=== PATIENT | female | born 1960 | race Caucasian/White ===

== ENCOUNTER 2016-06-12 21:42 | Emergency (ER) | payer OTHER ==
--- NOTE | 2016-06-12 22:10 | ED CARDIAC/CP/PALPITATIONS ---
History of Present Illness General Chief Complaint: Chest Pain Stated Complaint: RIGHT SIDED CHEST PAIN Source: patient, family, old records Exam Limitations: no limitations Vital Signs & Intake/Output Vital Signs & Intake/Output Vital Signs Date Time Temp Pulse Resp B/P Pulse O2 O2 Flow FiO2 Ox Delivery Rate 06/12 2336 97.9 77 18 147/67 99 Room Air 06/12 2223 18 06/12 2158 97.2 80 122/80 100 ED Intake and Output 06/13 0000 06/12 1200 Intake Total 30 Output Total Balance 30 Intake, Oral 30 Allergies Coded Allergies: No Known Allergies (06/12/16) Triage Note: PER PT CP SINCE ABOUT 7 PM COMES AND GOES HAS HAD X COUPLE OF MONTHS. PT WITH CHRONIC BACK AND ARM PAIN BUT THIS IS RT SIDED CHEST Triage Nurses Notes Reviewed? yes Onset: Abrupt Duration: hour(s): (3), constant Timing: recent history Quality/Severity: moderate, aching, sharp Location: abdomen (ruq) Radiation: r chest wall Activities at Onset: rest Prior Chest Pain/Card Workup: similar sx in past several months Aspirin Today: no aspirin today HPI: 55-year-old female who presents emergency room for evaluation complaining of sudden onset right upper quadrant abdominal pain radiating to the right chest since 7:00 this evening it came on while at rest. Patient states symptoms are waxing and waning in intensity however she is not taken anything for her symptoms. She reports history of similar episodes in the past several months, patient reports positive nausea this evening hours declining a nausea when offered. No vomiting no diarrhea no other abdominal pain fever or chills. The patient denies pain with inspiration shortness of breath palpitations dizziness lightheadedness lability no leg pain or swelling. pain is worse with palpation. (DEONDRE NIEVES) Past History Travel History Traveled to [place] past 21 day No Medical History Any Pertinent Medical History? see below for history Neurological: NONE EENT: NONE Cardiovascular: hypertension Respiratory: NONE Gastrointestinal: NONE Hepatic: NONE Renal: NONE Musculoskeletal: CHRONIC PAIN Psychiatric: NONE Endocrine: NONE Surgical History Surgical History: none Psychosocial History Who do you live with Spouse Services at Home NONE What is your primary language Macedonian Tobacco Use: Never used Family History Hx Contributory? No (DEONDRE NIEVES) Review of Systems Review of Systems Constitutional: Reports: see HPI. All Other Systems: Reviewed and Negative Comments Review of systems: See HPI, All other systems negative. Constitutional, no chills no fever, no malaise HEENT: no sore throat no congestion, no ear pain Cardiovascular: chest pain , no palpitation , no orthopnea no ankle swelling Skin, no jaundice no rashes, no change in skin Respiratory: No dyspnea no cough no sputum no hemoptysis GI: nausea no vomiting, no diarrhea, no bloating/constipation : No dysuria Muscle skeletal: No joint pain, no back pain, no neck pain, Neurologic: no headache Psych: No stress Heme/endocrine: No bruising no bleeding Immunology: No lymphadenopathy, (DEONDRE NIEVSE) Physical Exam Physical Exam General Appearance: well developed/nourished, no apparent distress Cardiovascular: regular rate/rhythm, normal peripheral pulses Gastrointestinal: tenderness (ruq) Comments: Well-developed well-nourished person in no acute distress HEENT: Normal EENT exam; PERRL, EOMI, HEAD is atraumatic. moist mucous membranes. Neck: Supple, normal range of motion Back: Nontender, no CVA tenderness. Full range of motion Cardiovascular: Regular rate and rhythms no murmurs rubs or gallops, normal JVP Respiratory: Chest nontender.There were no bony deformities, no asymmetry. No respiratory distress. Patient speaking in full complete sentences. Breath sounds clear to auscultation bilaterally: NO W/R/R Abdomen: Soft, RUQ TTP nondistended, no appreciable organomegaly. Normal bowel sounds. No rebound/guarding, No ascites. Extremity: No edema, full range of motion of extremities Neuro: Alert oriented x3, motor sensory normal, There were no obvious focal neurologic abnormalities. Skin: No appreciable rash on exposed skin, skin is warm and dry. No jaundice, no diaphoresis Psych: Mood and affect is normal, memory and judgment is normal. Core Measures ACS in differential dx? Yes Severe Sepsis Present: No Septic Shock Present: No (DEONDRE NIEVES) Progress Differential Diagnosis: AMI, aortic dissection, atrial fibrillation, cholecystitis, CHF/pulm edema, costochondritis, musculoskeletal pain, myocarditis, pancreatitis, pericarditis, pneumonia, pneumothorax, PSVT, pulmonary embolism, PUD/GERD, PVCs/PACs, unstable angina Plan of Care: Orders Procedure Date/time Status Telemetry/[employer] 06/12 2238 Active TROPONIN LEVEL 06/12 2204 Complete LIPASE 06/12 2204 Complete COMPREHENSIVE METABOLIC PANEL 06/12 2204 Complete CBC WITHOUT DIFFERENTIAL 06/12 2204 Complete AMYLASE 06/12 2204 Complete EKG 06/12 2142 Active Laboratory Tests 06/12/162219: Anion Gap 13, Estimated GFR > 60, BUN/Creatinine Ratio 13.3, Glucose 101 H, Calcium 9.9, Total Bilirubin 0.6, AST 100 H, ALT 53 H, Alkaline Phosphatase 91 , Troponin I < 0.01, Total Protein 8.1, Albumin 4.4, Globulin 3.7, Albumin/ Globulin Ratio 1.2, Amylase 30, Lipase 92, CBC w Diff MAN DIFF ORDERED, RBC 4.28 , MCV 86.9, MCH 28.7, RDW 14.3, MPV 7.9, Gran % 81.8 H, Lymphocytes % 12.9 L, Monocytes % 4.1, Eosinophils % 1.1, Basophils % 0.1, Absolute Granulocytes 13.1 H, Segmented Neutrophils 84 H, Absolute Lymphocytes 2.1, Lymphocytes 13 L, Monocytes 3, Absolute Monocytes 0.7 H, Absolute Eosinophils 0.2, Absolute Basophils 0, Platelet Estimate VERIFIED BY SMEAR, Normocytic RBCs VERIFIED, Normochromic RBCs VERIFIED, PUBS MCHC 33.0, Fld Total RBCs Counted 100 Patient medicated with Toradol IV Pepcid 20 IV GI cocktail Case discussed with and signed out to Dr. Garza ending labs CAT scan and x- ray (DEONDRE NIEVES) Diagnostic Imaging: Viewed by Me: Radiology Read, CT Scan. Discussed w/RAD: Radiology Read, CT Scan. Initial ED EKG: normal intervals, normal p-waves, normal QRS complex, normal sinus rhythm (70), nonspecific ST T wave chg Prior EKG: unchanged (2007) Rhythm Strip: normal sinus rhythm Hand-Off Endorsed To: YUN GARZA MD Endorsed Time: 2299 Pending: CT, labs, Xray (DEONDRE NIEVES) Radiology Impression: PATIENT: JORDI ENRIQUE PRESENT AGE: 55 PATIENT ACCOUNT NO: [id number] : 62 LOCATION: [facility] ORDERING PHYSICIAN: DEONDRE CLARK SERVICE DATE: 06/12/16 EXAM TYPE: CAT - CT ABD & PELVIS W IV CONTRAST EXAMINATION: CT ABDOMEN AND PELVIS WITH CONTRAST CLINICAL INFORMATION: Right-sided abdominal pain. Epigastric pain. Chest pain. COMPARISON: None TECHNIQUE: Multidetector volumetric imaging was performed of the abdomen and pelvis before and after the IV administration of 94 mL of Optiray 320 intravenous contrast. Sagittal and coronal reformatted images were obtained on the technologist's workstation. DLP: 889.91 mGy-cm FINDINGS: LUNG BASES: The visualized lung bases are unremarkable. LIVER, GALLBLADDER, AND BILIARY TREE: The liver is normal in size, shape, and attenuation. No focal hepatic lesion or biliary ductal dilatation is present. The gallbladder is unremarkable with no evidence of radiopaque gallstones, gallbladder wall thickening, or obvious pericholecystic inflammatory changes. PANCREAS: Unremarkable. SPLEEN: Unremarkable. ADRENAL GLANDS: Unremarkable. KIDNEYS AND URETERS: The kidneys are normal in size, shape, and attenuation. No hydronephrosis, hydroureter, or calculi seen. No perinephric stranding. BLADDER: Unremarkable. GASTROINTESTINAL TRACT: The small and large bowel are unremarkable. The appendix is unremarkable. ABDOMINAL WALL: No significant hernia is appreciated. LYMPH NODES: Normal. VASCULAR: Unremarkable. PELVIC VISCERA: Uterus is anteverted. No adnexal abnormality. OSSEOUS STRUCTURES: Unremarkable. IMPRESSION: No significant abnormality. DICTATED BY: ADELAIDA GILLETTE MD DATE/TIME DICTATED:06/12/162339 INSPECTING SUPERVISOR:PATRICK DATE/TIME TRANSCRIBED:06/12/162339 CONFIDENTIAL, DO NOT COPY WITHOUT APPROPRIATE AUTHORIZATION. <Electronically signed in Other Vendor System> SIGNED BY: ADELAIDA GILLETTE MD 06/12/162347 Comments: Patient is feeling much better. No tenderness in the right upper quadrant. (KAYLA ORANTES,YUN Lassiter) Departure Departure Condition: Stable Clinical Impression Primary Impression: Abdominal pain Secondary Impressions: Leukocytosis Departure Forms: Customer Survey General Discharge Information (DEONDRE NIEVES) Departure Disposition: HOME OR SELF CARE Referrals: KHANH ORANTES,JI Lassiter (PCP/Family) PEGGY ORANTES,CHRIS Pelaez. Additional Instructions: FOLLOW UP WITH DR. WOODS RETURN IF SYMPTOMS WORSEN OR FOR ANY CONCERNS Prescriptions: Current Visit Scripts Oxycodone HCl/Acetaminophen (Percocet 5-325 MG Tablet) 1-2 TAB PO Q6P PRN PAIN #20 TAB PA/FURNACE CARETAKER Co-Sign Statement Statement: ED Attending supervision documentation- [X] I saw and evaluated the patient. I have also reviewed all the pertinent lab results and diagnostic results. I agree with the findings and the plan of care as documented in the PA's/FURNACE CARETAKER's documentation. [X] I have reviewed the ED Record and agree with the PA's/FURNACE CARETAKER's documentation. [] Additions or exceptions (if any) to the PAs/FURNACE CARETAKER's note and plan are summarized below: [] (KAYLA ORANTES,YUN Lassiter) Critical Care Note Critical Care Note Critical Care Time: non-applicable (DEONDRE NIEVES)
[2016-06-12 22:39] LABS: ABSOLUTE BASOPHIL COUNT 0 /CUMM (0.0-0.2); ABSOLUTE EOSINOPHIL COUNT 0.2 /CUMM (0.0-0.7); ABSOLUTE GRANULOCYTE CT 13.1 /CUMM (1.4-6.5); ABSOLUTE LYMPH COUNT 2.1 /CUMM (1.2-3.4); ABSOLUTE MONOCYTE COUNT 0.7 /CUMM (0.10-0.60); BASOPHIL % 0.1 % (0.0-2.0); EOSINOPHIL % 1.1 % (0-5); GRANULOCYTE % 81.8 % (42.2-75.2); HEMATOCRIT 37.2 % (37-47); MEAN CORPUSCULAR HGB 28.7 PG (27.0-31.0); MEAN CORPUSCULAR VOLUME 86.9 FL (81.0-99.0); MEAN PLATELET VOLUME 7.9 FL (7.4-10.4); PLATELET COUNT 423 /CUMM (130-400); RBC DISTRIBUTION WIDTH 14.3 % (11.5-14.5); RED BLOOD CELL CT 4.28 /CUMM (4.20-5.40); WHITE BLOOD CELL COUNT 16.1 /CUMM (4.8-10.8)
[2016-06-12 23:36] VITALS: BP 147/67
--- NOTE | 2016-06-12 23:43 | RADIOLOGY REPORT ---
EXAMINATION: XR PORTABLE CHEST CLINICAL INFORMATION: Cardiomegaly. Right-sided chest pain. COMPARISON: None TECHNIQUE: Portable AP view of the chest was obtained. 10:57 PM FINDINGS: Heart size is normal. Cardiac and mediastinal contours are normal. No pulmonary vascular congestion. The lungs are clear. No pneumothorax. Orthopedic plate and screw at lower cervical spine IMPRESSION: Normal chest.
--- NOTE | 2016-06-12 23:48 | CT SCAN REPORT ---
EXAMINATION: CT ABDOMEN AND PELVIS WITH CONTRAST CLINICAL INFORMATION: Right-sided abdominal pain. Epigastric pain. Chest pain. COMPARISON: None TECHNIQUE: Multidetector volumetric imaging was performed of the abdomen and pelvis before and after the IV administration of 94 mL of Optiray 320 intravenous contrast. Sagittal and coronal reformatted images were obtained on the technologist's workstation. DLP: 889.91 mGy-cm FINDINGS: LUNG BASES: The visualized lung bases are unremarkable. LIVER, GALLBLADDER, AND BILIARY TREE: The liver is normal in size, shape, and attenuation. No focal hepatic lesion or biliary ductal dilatation is present. The gallbladder is unremarkable with no evidence of radiopaque gallstones, gallbladder wall thickening, or obvious pericholecystic inflammatory changes. PANCREAS: Unremarkable. SPLEEN: Unremarkable. ADRENAL GLANDS: Unremarkable. KIDNEYS AND URETERS: The kidneys are normal in size, shape, and attenuation. No hydronephrosis, hydroureter, or calculi seen. No perinephric stranding. BLADDER: Unremarkable. GASTROINTESTINAL TRACT: The small and large bowel are unremarkable. The appendix is unremarkable. ABDOMINAL WALL: No significant hernia is appreciated. LYMPH NODES: Normal. VASCULAR: Unremarkable. PELVIC VISCERA: Uterus is anteverted. No adnexal abnormality. OSSEOUS STRUCTURES: Unremarkable. IMPRESSION: No significant abnormality.
[2016-06-13] MEDS ORDERED: PERCOCET 5-3251 EACH PO (00:03)
== END 2016-06-13 00:21 ==
LOC: ERH 21:42
PROVIDERS: Emergency Medicine
DX: D72.829 Elevated white blood cell count, unspecified (principal); R10.11 Right upper quadrant pain
CPT/HCPCS: 74177; 93005; 93010; 96374; 96375; J1885

== ENCOUNTER → 2016-07-21 | Day surgery (SDC) | payer OTHER ==
[~2016-07-21] VITALS: Ht 160 cm; Wt 106.6 kg
[~2016-07-21] MED LIST: PERCOCET 5-3251 EACH PO
--- NOTE | 2016-07-23 13:04 | Operative Report ---
Operative/Inv Procedure Report Surgery Date: 07/21/16 Name of Procedure: Laparoscopic cholecystectomy Pre-Operative Diagnosis: Symptomatic gallstones Post-Operative Diagnosis: Same Estimated Blood Loss: scant Surgeon/Roper Operator: PEGGY ORANTES,CHRIS CLARK Anesthesia: general endotracheal tube Operative/Procedure Note Note: Patient was positioned supine. After successful induction of general anesthesia, the patient's abdomen was clipped, prepped and draped in the usual sterile fashion. Local anesthetic was injected at the top of the umbilicus and then a curved horizontal incision little over a centimeter was made there with a 15 blade and then deepened to the midline fascia which was incised vertically a little over a centimeter. Both sides were secured with 0 Vicryl stay sutures and then the thin peritoneal layer was entered, 10 mm Ledesma trocar inserted obliquely to the right, and the gas was turned on to 15 mm. After insufflation and repositioning to reverse Trendelenburg, 3 more dissecting 5 mm trochars were placed in the right subcostal area, first lateral, then mid-subcostal, then subxiphoid. The gallbladder fundus was grasped from the lateral port and retracted up over the edge of the liver and then we dissected out the area of the triangle of Calot while retracting the infundibulum caudally / laterally. First the cystic duct was identified, isolated at the neck, clipped 3 times, divided after the second clip and then in similar fashion the cystic artery was identified medially, dissected and divided. Then the gallbladder was from the liver bed using cautery then lowered into an Endobag and removed through the umbilical incision. The instruments and then the trochars were removed letting the gas escape. The fascial incision was closed with a figure 8 Vicryl then all 4 skin incisions were closed with interrupted subcuticular 4-0 Monocryl, followed by Mastisol Steri-Strips and Bandaids. Estimated blood loss was minimal, lap and sponge counts were correct, wound expectancy was clean- contaminated, IV fluids crystalloid, complications none, patient tolerated the procedure well and was returned to the recovery room in satisfactory condition.
== END ==
LOC: STS 01:48
DX: K80.10 Calculus of gallbladder with chronic cholecystitis without obstruction (principal); K82.4 Cholesterolosis of gallbladder; I10 Essential (primary) hypertension; E66.9 Obesity, unspecified
CPT/HCPCS: 81025; 88304; J0131; J0690; J2250; J2405

== ENCOUNTER 2016-08-14 09:54 | Emergency (ER) | payer OTHER ==
[~2016-08-14] VITALS: Ht 160 cm; Wt 106.6 kg
[2016-08-14] MEDS ORDERED: PROPRANOLOL HCL80 M3 PO (10:21)
--- NOTE | 2016-08-14 11:04 | ED NECK/BACK PAIN COMPLAINT ---
History of Present Illness General Chief Complaint: Neck/Upper Back Pain/Injury Stated Complaint: NECK PAIN RADIAITING INTO BOTH ARMS X 3DAYS Source: patient Exam Limitations: no limitations Vital Signs & Intake/Output Vital Signs & Intake/Output Vital Signs Date Time Temp Pulse Resp B/P B/P Pulse O2 O2 Flow FiO2 Mean Ox Delivery Rate 08/14 1124 Room Air 08/14 1000 97.0 76 16 127/86 97 Room Air Allergies Coded Allergies: No Known Allergies (06/12/16) Reconcile Medications Propranolol HCl 80 MG TABLET 1 TAB PO DAILY BP (Reported) Triage Note: PT STATES SHE IS HAVING NECK PAIN SINCE THE WEEKEND. PT WITH HX OF NECK SURGERY. Triage Nurses Notes Reviewed? yes HPI: Patient presents for evaluation of "a lot of neck pain". Patient's pain began Sunday evening while she was at a wedding. She denies any unusual exertion other than dancing. She states the pain is in the upper neck but she is also experiencing a bilateral shoulder and arm pain as well. She states the pain worsens with movement. There is been no associated fever or cold symptoms associated trauma. Patient had a neck fusion with hardware in 2007 and she has had intermittent numbness of the upper extremities since. Past History Travel History Traveled to [place] past 21 day No Medical History Any Pertinent Medical History? see below for history Neurological: NONE EENT: NONE Cardiovascular: hypertension Respiratory: NONE Gastrointestinal: NONE Hepatic: NONE Renal: NONE Musculoskeletal: CHRONIC PAIN Psychiatric: NONE Endocrine: NONE Surgical History Surgical History: none Psychosocial History Who do you live with Spouse Services at Home NONE What is your primary language Bulgarian Tobacco Use: Never used ETOH Use: occasional use Illicit Drug Use: denies illicit drug use Family History Hx Contributory? No Review of Systems Review of Systems Constitutional: Reports: no symptoms. Eyes: Reports: no symptoms. Ears, Nose, Throat, Mouth: Reports: no symptoms. Respiratory: Reports: no symptoms. Cardiovascular: Reports: no symptoms. Gastrointestinal/Abdominal: Reports: no symptoms. Musculoskeletal: Reports: see HPI. Skin: Reports: no symptoms. Neurological/Psychological: Reports: no symptoms. All Other Systems: Reviewed and Negative Physical Exam Physical Exam Neck: sEE BELOW Comments: Gen.: Well-nourished, well-developed, no acute respiratory distress. Head: Normocephalic, atraumatic. Eyes: Normal inspection bilaterally Ears: Normal inspection bilaterally Nose: Normal inspection Throat/mouth : Moist mucosa Neck: Supple, full range of motion, no goiter, no carotid bruits mild carotid pulses, nontender Heart: Regular rate and rhythm, no murmurs rubs or gallops Lungs: Clear to auscultation bilaterally with normal air entry Chest: Nontender Back: Normal range of motion Extremities: Normal range of motion grossly, equal radial pulses, no cyanosis clubbing or edema, upper extremities: Normal deep tendon reflexes bilaterally, sensation intact to light touch, clinical product manager strength normal, no pronator drift Neurologic: Cranial nerves grossly intact, speech is clear Skin: warm and dry Psychiatric: Calm, cooperative, no apparent delusions or hallucinations Progress Differential Diagnosis: herniated disc, myofascial strain Plan of Care: Current Medications Sig/Luzma Start time Last Medication Dose Stop Time Status Admin Methylprednisolone 125 MG ONCE ONE 08/14 1444 UNVr (Solu Medrol) 08/14 1445 Comments: MRI considered but patient's surgery occurred in 2007. It is unclear if the hardware is compatible with MRI. 08/14/2016 2:18:01 PM patient's case discussed with neurosurgical EDUARDO gonzalez covering for Dr. Ballard. CAT scan reviewed. Patient will be treated with steroids pain medication and office follow-up. Imaging with MRI discussed but felt not necessary at this point. Departure Departure Disposition: HOME OR SELF CARE Condition: Stable Clinical Impression Primary Impression: Neck pain Secondary Impressions: Cervical radiculopathy, Degenerative disc disease, cervical Referrals: KHANH ORANTES,JI Lassiter (PCP/Family) Departure Forms: Customer Survey General Discharge Information Prescriptions: Current Visit Scripts Methylprednisolone. (Medrol) 1 DP PO AD #1 DP 6 on day 1 then reduce by one tablet daily until gone Hydrocodone/Acetaminophen (Easley 5-325 Tablet) 1-2 TAB PO Q6P PRN PAIN #20 TAB
--- NOTE | 2016-08-14 13:27 | CT SCAN REPORT ---
EXAMINATION: CT CERVICAL SPINE WITHOUT CONTRAST CLINICAL INFORMATION: Neck pain and upper extremity numbness. Disc disease. COMPARISON: No recent comparison exams of the cervical spine within the electronic picture archive. TECHNIQUE: Noncontrast multidetector CT imaging of the cervical spine was performed using 0.625 mm collimation. In addition to the standard set of axial images, coronal and sagittal reformatted images were generated and reviewed. DLP: 372 mGy-cm FINDINGS: The visualized intracranial structures are normal. Within the posterior fossa, the fourth ventricle is midline in position. The cerebellar hemispheres and brainstem are unremarkable. There is lack of lordotic curvature of the postoperative cervical spine. No acute findings are detected within the cervical or upper thoracic spine. No evidence of epidural hematoma or paraspinal fluid collection. Occipital condyles, atlas, axis and atlantoaxial articulation are intact. At C2-C3, there is mild facet arthropathy. The C2-C3 disc space is preserved. There is minimal central disc protrusion at C2-C3. No significant narrowing of the central canal or neural foramina at this level. At C3-C4, there is moderate bilateral facet arthropathy, mild uncovertebral joint hypertrophy and small posterior disc-osteophyte complex without significant narrowing of the central canal or foramina. At C4-C5, there is degenerative disc space narrowing and traction osteophyte formation with posterior disc-osteophyte complex indenting the ventral surface of the thecal sac and narrowing the central spinal canal to approximately 1 cm AP diameter. The neural foramina are widely patent. Surgical changes from remote discectomy and anterior fusion at C5-C6 and C6-C7. Anterior fusion plate and screws are in satisfactory position. There is no hardware failure, vertebral osteolysis, prevertebral soft tissue swelling, fracture or malalignment. There is solid incorporation of bone graft into the endplates of C5 and C6. At C6-C7, there is no convincing incorporation of the intervertebral bone graft into the superior endplate of C7 but it is fused to the inferior endplate of C6. Streak artifact is produced by the fixation hardware. The posterior vertebral osteophytes at C5-C6 and C6-C7 narrow the central spinal canal to 1 - 1.1 cm AP dimension at these levels. The uncovertebral joint osteophytes produce mild right-sided foraminal stenosis at C6-C7. There is no evidence of high-grade osseous foraminal stenosis. The visualized upper thoracic vertebra have normal height and alignment. The visualized lymph nodes of the suprahyoid and infrahyoid neck are in the normal size range. Thyroid gland and submandibular glands are unremarkable. The visualized lung apices are normal. IMPRESSION: 1. No acute fracture or malalignment of the degenerated cervical spine. 2. Status post discectomy and anterior fusion at C5-C6 and C6-C7. 3. Posterior vertebral osteophytes produce mild central canal stenosis at C4-C5, C5-C6 and C6-C7. There is no evidence of a significant osseous stenosis of the neural foramina.
[2016-08-14] MEDS ORDERED: MEDROL4 M2 PO (14:42)
[2016-08-14] MEDS ORDERED: NORCO 5-325 TA1 EACH PO (14:42)
[2016-08-14 15:05] VITALS: BP 129/77
== END 2016-08-14 15:12 ==
LOC: ERH 09:54
DX: M54.2 Cervicalgia (principal); M50.10 Cervical disc disorder with radiculopathy, unspecified cervical region
CPT/HCPCS: 96372; J1885; J2930